=== PATIENT | male | born 1965 | race Caucasian/White ===

== ENCOUNTER 2016-09-20 11:28 | Emergency (ER) | payer MEDICARE ==
--- NOTE | ~2016-09-20 | CT2 ---
[facility] A Service of [facility] RADIOLOGY TEXT RESULTS PATIENT: KATIE WILSON LOCATION: [place] : 67 UNIT #: [id number] AGE: [address]: Wellington Garcia MD SEX: M ORDER DR: [id number] [facility] [address] [place], [place] [address] [id number] E MR#: [id number] #: [id number] NAME: KATIE WILSON : 1965 SEX: M STUDY DATE/TIME: 09/20/2016 14:18 UNIT: [facility] ROOM: STUDY DESCRIPTION: CT Abd and Pelv W Cont Attending Physician: Wellington Garcia M.D. Referring Physician: Primary Care Physician No Ordering Physician: Bren Reyes M.D. Primary Care Physician: Primary Care Physician No MEDICAL IMAGING REPORT This report is preliminary unless electronic signature is present EXAM CT abdomen and pelvis HISTORY Not voided for 3 hours, cath has been in 4 weeks, lower abdomen pain; denies nausea, vomiting, diarrhea, constipation. FINDINGS This CT exam was performed with one or more of the following radiation dose reduction techniques: Automatic exposure control, adjustment of mA and/or kV according to patient size, and iterative reconstruction. CT abdomen and pelvis performed with administration of 100 mL Isovue-370. Enteric contrast not administered. Comparison 02/21/2016. Atelectasis at the right lung base. Inferior heart and pericardium unremarkable. Liver shows a segment VII 7-8 mm hypodense focus unchanged from prior examination. Not clearly a simple cyst on basis of this examination. Probably a small cyst. Other etiologies could be considered and the finding is best further evaluated with multiphase contrast-enhanced MRI or CT. The gallbladder, spleen, pancreas, adrenal glands and kidneys show stable focal area of parenchymal loss lower-pole right kidney likely reflecting prior episode of infection or prior vascular insult. CT PELVIS: No inguinal adenopathy. Walker catheter in urinary bladder. Small amount of air within the urinary bladder. This is favored to reflect presence of the Walker catheter. The bladder wall is diffusely abnormal. It is abnormally thickened even in the context of the diminished bladder volume. The wall measures up to about 1.3 cm in thickness. There is some generalized haziness in the perivesical fat. Findings are concerning for generalized cystitis. Correlate with urinalysis and clinical exam. There is a small volume of urine within the urinary bladder. I do not see a focal bladder mass. There is no drainable perivesicular fluid collection. There is no air within the STS. [facility] A Service of [facility] RADIOLOGY TEXT RESULTS PATIENT: KATIE WILSON LOCATION: [facility] : [birth year] UNIT #: [id number] AGE: [address]: Wellington Garcia MD SEX: M ORDER DR: bladder wall to suggest emphysematous cystitis. No pelvic or retroperitoneal adenopathy. The distal esophagus, stomach, small bowel, appendix normal. Colon unremarkable to the level of the rectum where there is abnormal rectal wall thickening. This appears concentric without perirectal fluid collection. There may be some mild perirectal fat stranding. The appearance could in part be sympathetic in nature and related to nearby cystitis. Possibility of concomitant infectious or inflammatory proctitis should be considered. Correlate with clinical presentation. Consider further evaluation with proctoscopy. Scattered atherosclerotic arterial calcifications. No aneurysm. The bony structures show no acute abnormality. IMPRESSION 1. Abnormal appearance of urinary bladder with diffuse bladder wall thickening measuring on the order of about 1.3 cm in thickness. This is disproportionately greater than anticipated for the relatively decompressed state of the bladder. Surrounding perivesical inflammatory change with fat stranding and haziness. No associated drainable fluid collection. Findings most suggestive of infectious or inflammatory cystitis. Please correlate with urinalysis. Follow up to radiographic resolution is recommended. 2. There is a Walker catheter in place. There is some air within the urinary bladder favored to reflect the placement of the Walker catheter. I see no intramural air to raise suspicion for emphysematous cystitis. Again, please correlate with urinalysis. 3. Abnormal concentric wall thickening of the rectum. Finding most consistent with infectious or inflammatory proctitis. No focal mass lesion is seen. There is some mild perirectal inflammatory change but no fluid collection. No resulting obstruction. Follow up to radiographic resolution is recommended. This could be further evaluated with proctoscopy. The more proximal colon shows no acute abnormality. Note is made of some uncomplicated diverticula. 4. Gallbladder, pancreas, appendix normal. 5. No acute renal finding. Stable focus of parenchymal loss lower-pole right kidney likely reflecting prior episode of infection or prior vascular insult. 6. 7-8 mm focus of hypodensity segment VII of the liver unchanged from 2016 and likely benign in nature. Possibly a small cyst but not clearly such on basis of this examination alone. Best fully characterized with multiphase contrast-enhanced CT or MRI. 7. Dependent atelectasis at the right lung base. 8. Atherosclerotic arterial calcifications. Dictated by... Micheal Dhillon M.D. THIS IS AN ELECTRONICALLY VERIFIED REPORT Micheal Dhillon M.D. at 09/20/2016 10:42 PM [facility] A Service of [facility] RADIOLOGY TEXT RESULTS PATIENT: KATIE WILSON LOCATION: [facility] : 67 UNIT #: [id number] AGE: [address]: Wellington Garcia MD SEX: M ORDER DR: YAW/so TD: 09/20/2016 17:33 JOB #: [id number] MEDICAL IMAGING REPORT Page 1 of 1 COPY
[~2016-09-20 11:28] MED LIST: ACETAMINOPHEN650 M3 PEG; ASPIRIN81 M2 PO; ASPIRIN81 MG PEG; ASPIRIN81 MG PO; BACTRIM DS TABL1 TA1 PO; CIPRO250 M1 PO; CLOPIDOGREL75 MG PO; COMBIVENT MININEB INH; COREG6.25 MG PO; FLEXERIL10 M1 PO; HALDOL PEG; KEFLEX500 M1 PO; LIPITOR20 MG PEG; LISINOPRIL10 MG PO; LISINOPRIL2.5 MG PEG; LISINOPRIL5 MG PO; METOPROLOL TAR25 MG PEG; METOPROLOL TAR25 MG PO; NO MEDICATIONS; NORCO 5/325 TAB1 TAB PO; OLANZAPINE5 MG PEG; PANTOPRAZOLE SO40 MG PEG; PLAVIX PO; PREDNISONE1 MG PO; PROZAC20 MG/5 ML PEG; SIMVASTATIN40 MG PO; TAMIFLU75 M1 PO; VALTREX PO; ZOCOR PO
[2016-09-20 12:27] LABS: BASOPHIL# 0.1 X10e3 (0-0.3); BASOPHIL% 0.9 % (0-2.5); EOSINOPHIL# 0.1 X10e3 (0-0.7); EOSINOPHIL% 2.2 % (0.0-7.0); HEMOGLOBIN 13.5 gm/dL (13.0-16.0); LYMPHOCYTE# 1.1 X10e3 (1.0-3.5); LYMPHOCYTE% 17.3 % (17.0-45.0); MEAN CELL VOLUME 81.7 FL (83-96); MEAN CORPUSCULAR HEMOGLOBIN 26.8 PG (28-34); MEAN CORPUSCULAR HGB CONC 32.9 g/dL (30-36); MEAN PLATELET VOLUME 8.3 FL (6.5-11.5); MONOCYTE# 0.6 X10e3 (0-1.0); MONOCYTE% 8.5 % (3.0-12.0); NEUTROPHIL# 4.7 X10e3 (1.5-7.1); NEUTROPHIL% 71.1 % (40-75); PLATELET COUNT 218 X10e3 (140-420); RED BLOOD COUNT 5.02 X10e (3.90-5.60); RED CELL DISTRIBUTION WIDTH 14.2 % (11.0-15.5); WHITE BLOOD COUNT 6.6 X10e3 (4.0-10.5)
[2016-09-20 12:28] LABS: DIFF IND NO
[2016-09-20 12:31] LABS: INR 1.1; PROTHROMBIN TIME (PATIENT) 11.5 SECONDS (9.6-11.5)
[2016-09-20 12:34] LABS: URINE SOURCE CATH
[2016-09-20 12:40] LABS: URINE APPEARANCE TURBID; URINE BILIRUBIN NEG (NEG); URINE BLOOD 3+ (NEG); URINE COLOR ORANGE; URINE GLUCOSE NEG (NEG); URINE KETONE NEG (NEG); URINE LEUKOCYTE ESTERASE 3+ (NEG); URINE NITRATE NEG (NEG); URINE PH 6.5 (5-8); URINE PROTEIN 2+ (NEG); URINE SPECIFIC GRAVITY 1.016 (1.003-1.035)
[2016-09-20 12:41] LABS: ALBUMIN SERUM 3.8 g/dL (3.5-5.0); ALKALINE PHOSPHATASE 91 U/L (32-92); ALT (SGPT) 217 U/L (10-40); AST (SGOT) 111 U/L (10-42); BILIRUBIN, DIRECT 0.2 mg/dL (0.0-0.2); BILIRUBIN,INDIRECT 0.6 mg/dL (0.0-0.9); BILIRUBIN,TOTAL 0.8 mg/dL (0.2-2.0); BLOOD UREA NITROGEN 13 mg/dL (9-23); CALCIUM SERUM 8.9 mg/dL (8.4-10.2); CARBON DIOXIDE 24 mmol/L (22-31); CHLORIDE 104 mmol/L (100-111); GLOM FILT RATE Estimated 87.4 mL/min (>60); GLUCOSE FASTING 100 mg/dL (70-110); POTASSIUM 3.8 mmol/L (3.5-5.1); PROTEIN TOTAL SERUM 7.1 g/dL (6.0-8.3); SODIUM 137 mmol/L (135-145)
[2016-09-20 12:42] LABS: CULTURE INDICATED? YES; URBCS1 AUWI INNUM /[HPF] (0-2); URINE BACTERIA AUWI 4+ (NEGATIVE); URINE SQUAMOUS EPITHELIAL CELL NONE SEEN /[HPF]; UWBCS1 AUWI INNUM (0-5)
[2016-09-20 12:43] LABS: ALCOHOL BLOOD <5 mg/dL ([, 0])
[2016-09-20 13:14] LABS: AMPHETAMINE POS (NEG); BARBITURATES NEG (NEG); BENZODIAZEPINES NEG (NEG); COCAINE POS (NEG); MARIJUANA NEG (NEG); OPIATES POS (NEG); TRICYCLIC ANTIDEPRESSANTS NEG (NEG); U METHADONE NEG (NEG)
== END 2016-09-20 16:20 | disposition home or self-care (01) ==
LOC: CED 11:28
PROVIDERS: Emergency Medicine
DX: T83.511A Infection and inflammatory reaction due to indwelling urethral catheter, initial encounter (principal); N39.0 Urinary tract infection, site not specified; I10 Essential (primary) hypertension; E11.9 Type 2 diabetes mellitus without complications; I25.2 Old myocardial infarction; I50.9 Heart failure, unspecified; J44.9 Chronic obstructive pulmonary disease, unspecified; F17.210 Nicotine dependence, cigarettes, uncomplicated
CPT/HCPCS: 36415; 51702; 74177; 80048; 80076; 80307; 81003; 83605; 85025; 85610; 85730; 87086; 96374; 96375; 99284; G0480; J0696; J2270; J2405; Q9967

== ENCOUNTER 2016-11-09 22:29 | Emergency (ER) | payer MEDICARE ==
[2016-11-09 23:48] LABS: URINE APPEARANCE TURBID; URINE BILIRUBIN NEG (NEG); URINE BLOOD 3+ (NEG); URINE COLOR YELLOW; URINE GLUCOSE NEG (NEG); URINE KETONE NEG (NEG); URINE LEUKOCYTE ESTERASE 3+ (NEG); URINE NITRATE POS (NEG); URINE PH 5.5 (5-8); URINE PROTEIN 1+ (NEG); URINE SPECIFIC GRAVITY 1.024 (1.003-1.035)
[2016-11-09 23:50] LABS: CULTURE INDICATED? YES; URBCS1 AUWI 50-100 /[HPF] (0-2); URINE BACTERIA AUWI 4+ (NEGATIVE); URINE SQUAMOUS EPITHELIAL CELL NONE SEEN /[HPF]; UWBCS1 AUWI INNUM (0-5)
[2016-11-10 00:12] LABS: ALBUMIN SERUM 4.1 g/dL (3.5-5.0); BILIRUBIN, DIRECT 0.1 mg/dL (0.0-0.2); BILIRUBIN,INDIRECT 0.3 mg/dL (0.0-0.9); BILIRUBIN,TOTAL 0.4 mg/dL (0.2-2.0); BUN/CREATININE RATIO 16.36; CALCIUM SERUM 9.2 mg/dL (8.4-10.2); CREATININE SERUM 1.1 mg/dL (0.6-1.4); GLOM FILT RATE Estimated 77.9 mL/min (>60); POTASSIUM 3.9 mmol/L (3.5-5.1); PROTEIN TOTAL SERUM 7.5 g/dL (6.0-8.3)
== END 2016-11-10 01:10 | disposition home or self-care (01) ==
LOC: CED 22:29 → CFTX 23:59 → CED 11-10 01:10
PROVIDERS: Nurse Practitioner Family
DX: N39.0 Urinary tract infection, site not specified (principal); R33.9 Retention of urine, unspecified; I25.2 Old myocardial infarction; I11.0 Hypertensive heart disease with heart failure; I50.9 Heart failure, unspecified; Z86.73 Personal history of transient ischemic attack (TIA), and cerebral infarction without residual deficits; Z95.5 Presence of coronary angioplasty implant and graft; F17.210 Nicotine dependence, cigarettes, uncomplicated
CPT/HCPCS: 36415; 80048; 80076; 81003; 87086; 87088; 87186; 99283

== ENCOUNTER 2016-11-17 04:55 | Emergency (ER) | payer MEDICARE ==
--- NOTE | ~2016-11-17 | CT4 ---
[facility] A Service of [facility] RADIOLOGY TEXT RESULTS PATIENT: KATIE WILSON LOCATION: [facility] : [birth year] UNIT #: [id number] AGE: [address]: Michael Estrella MD SEX: M ORDER DR: [id number] [facility] [address] [place], [place] [address] [id number] E MR#: [id number] Acc #: [id number] NAME: KATIE WILSON : 1965 SEX: M STUDY DATE/TIME: 11/17/2016 6:24 UNIT: [facility] ROOM: STUDY DESCRIPTION: CT Abd and Pelv Wo Cont Attending Physician: Michael Estrella M.D. Ordering Physician: Doug Michael D.O. Primary Care Physician: No Primary Care Physician MEDICAL IMAGING REPORT This report is preliminary unless electronic signature is present EXAM CT scan of the abdomen and pelvis without contrast. HISTORY Lower abdomen pain for a week. COMPARISON 09/20/2016 TECHNIQUE Axial 3-mm images were obtained through the abdomen and pelvis without IV or oral contrast. This CT exam was performed with one or more of the following radiation dose reduction techniques: automatic exposure control, adjustment of mA and/or kV according to patient size, and iterative reconstruction. FINDINGS The liver, gallbladder, spleen, pancreas, and adrenal glands are normal. The right kidney is normal, except for some cortical scarring along the inferolateral margin. The left kidney shows moderate hydronephrosis. The ureter is dilated down into the pelvis, but does not to be dilated all the way to the bladder. I do not see any stones. No distinct bladder wall mass is identified. There is slight wall thickening throughout the bladder. This appears improved, as compared with 09/20/2016, when the bladder was mostly collapsed and appeared to have a significantly thickened wall. The aorta shows mild infrarenal enlargement, measuring 3.0 cm in maximum dimension. There is no adenopathy. The bowel is normal. The prostate gland is normal. The bones are unremarkable. IMPRESSION 1. There is definite moderate hydronephrosis, and most of the left ureter is dilated, but I do not see any stones. The distal 2-3 cm of STS. [facility] A Service of [facility] RADIOLOGY TEXT RESULTS PATIENT: KATIE WILSON LOCATION: [facility] : 67 UNIT #: [id number] AGE: [address]: Michael Estrella MD SEX: M ORDER DR: the ureter appear to be nondilated. 2. The bladder shows mild diffuse wall thickening. The bladder is distended, and it is difficult to tell if there is involvement of the bladder wall with prostate tissue or with flat mass. No rounded or focal mass is visible in the base of the bladder. It is noted that the patient's bladder was abnormal on 09/20/2016, when it was mostly collapsed on the CT scan and showed definite diffuse wall thickening. Urologic follow-up, if possible, retrograde study may be necessary. Distal ureteral tumor or bladder tumor causing obstruction cannot be excluded. 3. There is focal cortical scarring in the lower pole of the right kidney, which is stable. 4. 3-cm abdominal aortic aneurysm. Dictated by... Navi Spencer M.D. THIS IS AN ELECTRONICALLY VERIFIED REPORT Navi Spencer M.D. at 11/17/2016 3:54 PM Aamir TD: 11/17/2016 13:48 JOB #: [id number] MEDICAL IMAGING REPORT Page 1 of 1 COPY
[2016-11-17 05:47] LABS: URINE SOURCE CLEAN CATCH
[2016-11-17 05:51] LABS: BASOPHIL# 0.1 X10e3 (0-0.3); BASOPHIL% 0.7 % (0-2.5); EOSINOPHIL# 0.1 X10e3 (0-0.7); EOSINOPHIL% 1.5 % (0.0-7.0); HEMATOCRIT 40.1 % (38.0-50.0); HEMOGLOBIN 13.2 gm/dL (13.0-16.0); LYMPHOCYTE# 3.2 X10e3 (1.0-3.5); MEAN CELL VOLUME 83.2 FL (83-96); MEAN CORPUSCULAR HEMOGLOBIN 27.3 PG (28-34); MEAN CORPUSCULAR HGB CONC 32.9 g/dL (30-36); MEAN PLATELET VOLUME 7.9 FL (6.5-11.5); MONOCYTE# 0.9 X10e3 (0-1.0); MONOCYTE% 9.2 % (3.0-12.0); NEUTROPHIL# 5.4 X10e3 (1.5-7.1); NEUTROPHIL% 55.6 % (40-75); PLATELET COUNT 221 X10e3 (140-420); RED BLOOD COUNT 4.82 X10e (3.90-5.60); WHITE BLOOD COUNT 9.7 X10e3 (4.0-10.5)
[2016-11-17 05:56] LABS: DIFF IND NO
[2016-11-17 06:08] LABS: URINE APPEARANCE CLOUDY; URINE BILIRUBIN NEG (NEG); URINE BLOOD NEG (NEG); URINE COLOR YELLOW; URINE GLUCOSE NEG (NEG); URINE KETONE NEG (NEG); URINE LEUKOCYTE ESTERASE 3+ (NEG); URINE NITRATE NEG (NEG); URINE PH 6.5 (5-8); URINE PROTEIN TRACE (NEG); URINE SPECIFIC GRAVITY 1.019 (1.003-1.035); URINE UROBILINOGEN 0.2 MG/DL (NEG)
[2016-11-17 06:10] LABS: CULTURE INDICATED? YES; URINE BACTERIA AUWI NEG (NEGATIVE); URINE SQUAMOUS EPITHELIAL CELL NONE SEEN /[HPF]
[2016-11-17 06:22] LABS: AMPHETAMINE POS (NEG); BARBITURATES NEG (NEG); BENZODIAZEPINES NEG (NEG); COCAINE NEG (NEG); MARIJUANA NEG (NEG); OPIATES POS (NEG); TRICYCLIC ANTIDEPRESSANTS NEG (NEG); U METHADONE NEG (NEG)
[2016-11-17 06:23] LABS: ALBUMIN SERUM 3.8 g/dL (3.5-5.0); BILIRUBIN, DIRECT 0.1 mg/dL (0.0-0.2); BILIRUBIN,INDIRECT 0.8 mg/dL (0.0-0.9); BILIRUBIN,TOTAL 0.9 mg/dL (0.2-2.0); CALCIUM SERUM 8.9 mg/dL (8.4-10.2); GLOM FILT RATE Estimated 87.4 mL/min (>60); POTASSIUM 3.3 mmol/L (3.5-5.1); PROTEIN TOTAL SERUM 7.1 g/dL (6.0-8.3)
[2016-11-17 06:36] LABS: URBCS1 AUWI 0-2 /[HPF] (0-2)
[2016-11-17 06:37] LABS: UWBCS1 AUWI 25-50 (0-5)
== END 2016-11-17 07:08 | disposition home or self-care (01) ==
LOC: CED 04:55
PROVIDERS: Emergency Medicine
DX: N30.00 Acute cystitis without hematuria (principal); F19.10 Other psychoactive substance abuse, uncomplicated; E78.5 Hyperlipidemia, unspecified; I10 Essential (primary) hypertension; Z95.5 Presence of coronary angioplasty implant and graft; Z98.890 Other specified postprocedural states; F17.200 Nicotine dependence, unspecified, uncomplicated
CPT/HCPCS: 36415; 74176; 80048; 80076; 80307; 81003; 83690; 85025; 87086; 96361; 96365; 99284; J0696